=== PATIENT | female | born 2000 | race Caucasian/White ===

== ENCOUNTER 2024-11-06 21:13 | Emergency (ER) | payer MEDICAID, SELFPAY | END 2024-11-06 21:50 | disposition home or self-care (01) | LOC: BURERS 21:13 | DX: J02.9 Acute pharyngitis, unspecified (principal); R05.9 Cough, unspecified; H92.03 Otalgia, bilateral; Z55.6 Problems related to health literacy | CPT/HCPCS: 99283 ==